=== PATIENT | male | born 1975 | race Caucasian/White ===

== ENCOUNTER 2020-09-19 11:09 | Day surgery (SDC) | payer BC ==
[2020-09-18 15:03] VITALS: BMI 26.4
[2020-09-19 12:34] LABS: #Basophils 0.1 thou/uL (0.0-0.2); #Eosinphils 0.5 thou/uL (0.0-0.7); #Lymphocytes 1.7 thou/uL (1.20-3.40); #Monocytes 0.4 thou/uL (0.11-0.59); #Neutrophils 2.9 thou/uL (1.40-6.50); %Basophils 1.4 % (0.0-1.0); %Eosinophils 8.3 % (0.0-10.0); %Lymphocytes 30.2 % (21.0-51.0); %Monocytes 7.8 % (0.0-10.0); %Neutrophils 52.4 % (42.0-75.0); Hemoglobin 15.6 g/dL (14.0-18.0); Mean Corpuscular HGB CONC 33.5 g/dL (32.0-36.0); Mean Corpuscular Hemoglobin 33.1 pg (27.0-31.0); Mean Corpuscular Volume 98.6 fL (78.0-98.0); Mean Platelet Volume 9.3 fL (7.4-10.4); Platelet Count 161 thou/uL (130-400); RBC Distribution Width 11.8 % (11.5-14.5); Red Blood Cell (RBC) Count 4.73 mill/uL (4.70-6.10); White Blood Cell (WBC) Count 5.6 thou/uL (4.8-10.8)
[2020-09-19] MEDS ORDERED: Bupivacaine PF 0.5% 30 ML VIAL ONE (16:32)
[2020-09-19] MEDS ORDERED: Bacitracin Zinc Ointment 30 gm TUBE ONE (16:32)
[2020-09-19] MEDS ORDERED: Dexmedetomidine 200 MCG/2 ML VIAL ONE (16:37)
[2020-09-19] MEDS ORDERED: Fentanyl 100 MCG/2 ML VIAL ONE (16:37)
[2020-09-19] MEDS ORDERED: PROPOFOL 200 MG/20 ML VIAL ONE (16:50)
[2020-09-19] MEDS ORDERED: ePHEDrine Sulfate 50 MG/10 ML VIAL ONE (16:50)
[2020-09-19] MEDS ORDERED: Ondansetron PF 4 MG/2 ML Vial ONE (16:50)
[2020-09-19] MEDS ORDERED: Dexamethasone 20 MG/5 ML VIAL ONE (16:50)
[2020-09-19] MEDS ORDERED: Lidocaine 1% PF 5 ML VIAL ONE (16:50)
[2020-09-19] MEDS ORDERED: Promethazine HCl 25 MG/ML VIAL IVPB PRN (20:12)
[2020-09-19] MEDS ORDERED: HYDROmorphone 2 MG/ML VIAL SLOW IVP PRN (20:12)
[2020-09-19] MEDS ORDERED: Ondansetron HCl/PF 4 MG/2 ML Vial IVP PRN (20:12)
[2020-09-19] MEDS ORDERED: Meperidine HCl/PF 25 MG/ML VIAL SLOW IVP PRN (20:12)
[2020-09-19] MEDS ORDERED: Promethazine HCl 25 MG/ML VIAL IM PRN (20:12)
[2020-09-19] MEDS ORDERED: Ketorolac Tromethamine 30 MG/ML VIAL ONE (20:17)
== END 2020-09-19 21:25 | disposition home or self-care (01) ==
LOC: SDC 11:09
PROVIDERS: ATTEND Orthopaedic Surgery Hand Surgery
PROC: 01N40ZZ Release Ulnar Nerve, Open Approach (ICD-10-PCS; principal; 2020-09-19)
PROC: 0LQ70ZZ Repair Right Hand Tendon, Open Approach (ICD-10-PCS; principal; 2020-09-19)
DX: S66.126A Laceration of flexor muscle, fascia and tendon of right little finger at wrist and hand level, initial encounter (principal); W26.8XXA Contact with other sharp object(s), not elsewhere classified, initial encounter
CPT/HCPCS: 36415; 85025; J0690; J1100; J1885; J2405; J2704; J3010; S0020